=== PATIENT | female | born 1995 | race Caucasian/White ===

== ENCOUNTER 2017-08-11 18:30 | Emergency (ER) | payer BC ==
[~2017-08-11] VITALS: Ht 157.5 cm; Wt 70.3 kg
[~2017-08-11 18:30] MED LIST: FLEXERIL PO; IBUPROFEN 800800 M1 PO; MIRALAX17 GM PO; NOHOMEMEDICATIONS; NORCO 5-325 TA1 EACH PO; PREVACID 24HR15 MG
[2017-08-11 20:30] VITALS: BP 148/80
== END 2017-08-11 20:33 | disposition home or self-care (01) ==
LOC: M.ERS 18:30
DX: S06.0X0A Concussion without loss of consciousness, initial encounter (principal); S00.83XA Contusion of other part of head, initial encounter; W20.8XXA Other cause of strike by thrown, projected or falling object, initial encounter; Y93.89 Activity, other specified; Y92.89 Other specified places as the place of occurrence of the external cause; Y99.8 Other external cause status